=== PATIENT | female | born 1980 | race Caucasian/White ===

== ENCOUNTER 2021-01-28 11:08 | Emergency (ER) | payer BC ==
[2021-01-28] MEDS ORDERED: Ketorolac 60 MG/2 ML SDV IM ONE (11:31)
--- NOTE | 2021-01-28 12:15 | EDM.PDOC ---
ED HPI GENERAL MEDICAL PROBLEM - General Chief Complaint: Lower Extremity Injury/Pain Stated Complaint: RT ANKLE INJURY Time Seen by Provider: 01/28/21 11:14 Source of Information: Reports: Patient, RN Notes Reviewed History Limitations: Reports: No Limitations - History of Present Illness INITIAL COMMENTS - FREE TEXT/NARRATIVE: Patient is a 40-year-old female presenting to the emergency department with complaints of right ankle pain and swelling. She states that she had a jump a fence to try to rescue her puppy from Huskies that were attacking it. When she landed she experienced pain to her ankle. She has been unable to bear weight since the time of the injury. She denies any previous injuries to this extremity. right ankle Pain Score (Numeric/FACES): 8 - Related Data Allergies Allergy/AdvReac Type Severity Reaction Status Date / Time codeine Allergy Rash Verified 01/28/21 11:18 Home Meds: Home Meds Acetaminophen/HYDROcodone [Rea 325-5 MG] 1 tab PO Q4H PRN #10 tablet 01/28/21 [Rx] Past Medical History - Past Health History Medical/Surgical History: Denies Medical/Surgical History Social & Family History - Tobacco Use Tobacco Use Status *Q: Never Tobacco User - Caffeine Use Caffeine Use: Reports: None - Recreational Drug Use Recreational Drug Use: No Review of Systems - Review of Systems Review Of Systems: See Below Constitutional: Reports: No Symptoms Eyes: Reports: No Symptoms Ears: Reports: No Symptoms Nose: Reports: No Symptoms Mouth/Throat: Reports: No Symptoms Respiratory: Reports: No Symptoms Cardiovascular: Reports: No Symptoms GI/Abdominal: Reports: No Symptoms Genitourinary: Reports: No Symptoms Musculoskeletal: Reports: Other (Right ankle pain and swelling) Skin: Reports: No Symptoms Neurological: Reports: No Symptoms Psychiatric: Reports: No Symptoms ED EXAM, GENERAL - Physical Exam Exam: See Below Exam Limited By: No Limitations General Appearance: Alert, WD/WN, No Apparent Distress Respiratory/Chest: No Respiratory Distress, Lungs Clear, Normal Breath Sounds, No Accessory Muscle Use, Chest Non-Tender Cardiovascular: Normal Peripheral Pulses, Regular Rate, Rhythm, No Edema, No Gallop, No JVD, No Murmur, No Rub Extremities: Other (Swelling and tenderness to palpation to the lateral aspect of the right ankle. CMS intact distal to the injury.) Neurological: Alert, Oriented, CN II-XII Intact, Normal Cognition, Normal Gait, Normal Reflexes, No Motor/Sensory Deficits Psychiatric: Normal Affect, Normal Mood Course - Vital Signs Last Recorded V/S: Last Vital Signs Temp 97.5 F 01/28/21 11:15 Pulse 110 H 01/28/21 11:15 Resp 20 01/28/21 11:15 BP 153/99 H 01/28/21 11:15 Pulse Ox 99 01/28/21 11:15 - Orders/Labs/Meds Orders: Active Orders 24 hr Category Date Time Status Ankle Min 3V Rt [CR] Stat Exams 01/28/21 11:19 Taken Meds: Medications Discontinued Medications Generic Name Dose Route Start Last Admin Trade Name Freq PRN Reason Stop Dose Admin Ketorolac Tromethamine 60 mg 01/28/21 11:31 01/28/21 11:44 Toradol IM 01/28/21 11:32 60 mg ONETIME ONE Administration - Re-Assessments/Exams Free Text/Narrative Re-Assessment/Exam: Patient is a 40-year-old female presenting to the emergency department with complaints of pain and swelling to her right ankle. She states that she had to jump a fence to try to rescue her puppy when she landed wrong. She has been experiencing pain since that time and has been unable to ambulate. On exam, she does have edema to the lateral aspect of her ankle with no obvious deformity. CMS is intact distal to the injury. I have ordered ankle x-rays as well as Toradol 60 mg IM. 01/28/21 12:13 X-ray of the right ankle shows a nondisplaced fracture of the distal fibula. Patient has been placed in a custom Ortho-Glass short leg posterior and stirrup splint. CMS intact distal to the splint. We will provide her with crutches and advised nonweightbearing. A referral will be sent to be Dr. Fausto looney low-up with him towards the end of this week. I will write a prescription for Rea for pain as needed. Discharge instructions as documented. Departure - Departure Time of Disposition: 12:14 Disposition: Home, Self-Care 01 Condition: Good Clinical Impression: Fibula fracture Qualifiers: Encounter type: initial encounter Fibula location: distal Fracture type: closed Fracture morphology: unspecified fracture morphology Laterality: right Qualified Code(s): S82.831A - Other fracture of upper and lower end of right fibula, initial encounter for closed fracture - Discharge Information *PRESCRIPTION DRUG MONITORING PROGRAM REVIEWED*: Yes *COPY OF PRESCRIPTION DRUG MONITORING REPORT IN PATIENT KYM: No Prescriptions: Acetaminophen/HYDROcodone [Rea 325-5 MG] 1 tab PO Q4H PRN #10 tablet PRN Reason: Pain Instructions: Nondisplaced Fibular Ankle Fracture Treated With Immobilization, Adult Referrals: Mesfin Lambert MD [Physician] - Additional Instructions: You were seen in the emergency department today for pain and swelling to your right ankle after jumping a fence and landing wrong. X-rays are completed and do show a nondisplaced fracture of your distal fibula. Splint has been applied. This should remain in place and be kept clean and dry until seen by orthopedics. Recommend ice and elevation for the next few days. Should be nonweightbearing with the crutches provided. Recommend routine Tylenol and ibuprofen as needed for pain. For pain not relieved by these medications, a prescription for Rea has been provided. Referral has been sent to Dr. Lambert, orthopedist. The number to schedule with him as listed below. Recommend calling his office Friday morning to set up a follow-up visit for later this week. Return to ER as needed. Sepsis Event Note (ED) - Evaluation Sepsis Screening Result: No Definite Risk - Focused Exam Vital Signs: Vital Signs Temp Pulse Resp BP Pulse Ox 01/28/21 11:15 97.5 F 110 H 20 153/99 H 99 - My Orders Last 24 Hours: My Active Orders 01/28/21 11:19 Ankle Min 3V Rt [CR] Stat - Assessment/Plan Last 24 Hours: My Active Orders 01/28/21 11:19 Ankle Min 3V Rt [CR] Stat
--- NOTE | 2021-01-28 12:33 | CR ---
Right ankle: 4 views of the right ankle were obtained. Comparison: No previous study is available. Nondisplaced lateral malleolus fracture is seen. Soft tissue swelling is noted. Ankle mortise is symmetric. No acute fracture or other bony abnormality is appreciated. Impression: 1. Nondisplaced lateral malleolus fracture. 2. Soft tissue swelling. Diagnostic code #3
== END 2021-01-28 12:35 | disposition home or self-care (01) ==
LOC: JD.ED 11:08
DX: S82.831A Other fracture of upper and lower end of right fibula, initial encounter for closed fracture (principal); Z88.5 Allergy status to narcotic agent; W17.89XA Other fall from one level to another, initial encounter; Y93.39 Activity, other involving climbing, rappelling and jumping off
CPT/HCPCS: 29515; 73610; 96372; 99283; J1885